=== PATIENT | male | born 1955 | race Two or more races ===

== ENCOUNTER 2019-10-07 12:45 | Inpatient (IN) | payer OTHER, MEDICAID ==
[~2019-10-07] VITALS: Ht 182.9 cm; Wt 80.0 kg
[2019-10-07 13:50] LABS: Basophils # (auto) 0 10 ^3/uL (0-0.2); Basophils % (auto) 0.7 % (0.0-2.0); Eosinophils # (auto) 0.1 10 ^3/uL (0-0.8); Eosinophils % (auto) 4.1 % (0.0-7.0); Hematocrit 35.1 % (41.0-53.0); Hemoglobin 11.7 g/dL (13.5-17.5); Lymphocytes # (auto) 1.1 10 ^3/uL (0.4-5.4); Lymphocytes % (auto) 32.5 % (10.0-50.0); Mean Corpuscular Hemoglobin 33.1 pg (28.0-32.0); Mean Corpuscular Hgb Conc. 33.3 g/dL (32.0-36.0); Mean Corpuscular Volume 99.7 fL (80.0-100.0); Monocytes # (auto) 0.3 10 ^3/uL (0-1.3); Neutrophils # (auto) 1.8 10 ^3/uL (1.6-8.6); Neutrophils % (auto) 54.7 % (37.0-80.0); Nucleated Red Blood Cells % 0.1 %; Platelet Count (auto) 177 10^3/uL (140-450); Red Blood Cells 3.52 10^6/uL (4.5-5.90); Red Cell Distribution Width 15.2 % (11.8-14.3); White Blood Cell 3.3 10^3/uL (4.4-10.8)
[2019-10-07 14:05] LABS: INR 1.11 (0.9-1.15); Partial Thromboplastin Time 27.2 sec (23.64-32.05)
[2019-10-07 14:07] LABS: Chloride 112 mmol/L (98-107); Potassium 3.6 mmol/L (3.5-5.1); Sodium 140 mmol/L (136-145)
[2019-10-07 14:17] LABS: Alanine Aminotransferase 47 U/L (16-61); Albumin 2.3 g/dL (3.4-5.0); Alkaline Phosphatase 70 U/L (45-117); Anion Gap 4 (5-15); Aspartate Aminotransferase 43 U/L (15-37); BUN/Creatinine Ratio 15.2; Bilirubin, Total 0.2 mg/dL (0.2-1.0); Blood Urea Nitrogen 15 mg/dL (7-18); Calcium 8.3 mg/dL (8.5-10.1); Carbon Dioxide 24 mmol/L (21-32); GFR African American 98 mL/min; GFR Non-African American 81 mL/min; Glucose 112 mg/dL (74-106); Magnesium 2.4 mg/dL (1.6-2.6); Total Protein 8.9 g/dL (6.4-8.2)
[2019-10-07] MEDS ORDERED: MORPHINE SULF INJ 2 MG/ML SYRINGE 1ML IV PRN ×2 (18:30→19:15)
[2019-10-07] MEDS ORDERED: NITROGLYCERIN 0.4 MG SL TAB SL PRN (18:30)
[2019-10-07] MEDS: SODIUM CHLORIDE 0.9% 1,000 ML IV SCH (19:08)
[2019-10-07] MEDS ORDERED: LABETALOL HCL 5 MG/ML ML 20ML VIAL IV PRN (19:15)
[2019-10-07] MEDS ORDERED: ONDANSETRON HCL 4 MG/2 ML VIAL IV PRN (19:15)
[2019-10-07] MEDS ORDERED: LORazepam 2MG/ML-1ML VIAL IV PRN ×2 (19:15→20:30)
[2019-10-07] MEDS ORDERED: LORazepam 2MG/ML-1ML VIAL ONE (20:16)
[2019-10-07 21:16] LABS: Cholesterol 69 mg/dL (< 200)
[2019-10-07 21:18] LABS: HDL Cholesterol 38 mg/dL (40-59); LDL Cholesterol 25 mg/dL (< 100); Triglycerides 75 mg/dL (< 150)
[2019-10-07] MEDS ORDERED: PHENYTOIN SODIUM 100 MG CAP PO SCH (22:00)
[2019-10-08 05:00] VITALS: BP 118/72
[2019-10-08 09:00] VITALS: BP 136/76
[2019-10-08] MEDS: traMADol HCL 50 MG TAB PO PRN ×2 (09:19→21:01)
[2019-10-08] MEDS: SODIUM CHLORIDE 0.9% 1,000 ML IV SCH ×2 (09:19→20:08)
[2019-10-08] MEDS: ENOXAPARIN SOD 40 MG/0.4 ML SYRINGE SC SCH (09:19)
[2019-10-08] MEDS: ASPirin 81 mg TAB PO SCH (09:19)
[2019-10-08 13:00] VITALS: BP 127/89
[2019-10-08 16:19] VITALS: BP 138/89
[2019-10-08] MEDS: PHENYTOIN SODIUM 100 MG CAP PO SCH ×2 (19:49→21:01)
[2019-10-08] MEDS: ATORVASTATIN 20 MG TAB PO SCH ×2 (19:49→21:01)
[2019-10-08 21:34] VITALS: BP 154/94
[2019-10-09 02:34] LABS: Alcohol, Urine < 3.0 mg/dL (0-10); Amphetamine Screen, Urine NEGATIVE (NEGATIVE); Barbiturate Scree,Urine NEGATIVE (NEGATIVE); Benzodiazephine Screen, Urine NEGATIVE (NEGATIVE); Cannabinoid Screen, Urine NEGATIVE (NEGATIVE); Cocaine Screen, Urine NEGATIVE (NEGATIVE); Opiate Scree,Urine NEGATIVE (NEGATIVE); Phencyclidine Screen, Urine NEGATIVE (NEGATIVE)
[2019-10-09 02:36] LABS: Urine Bacteria NONE SEEN /hpf (None Seen); Urine Blood Negative /uL (Negative); Urine Mucus FEW (None Seen); Urine Specific Gravity 1.023 (1.001-1.035); Urine WBC <1 /hpf (0 - 3)
[2019-10-09 04:34] VITALS: BP 155/93
[2019-10-09 09:00] VITALS: BP 144/54
[2019-10-09] MEDS: SODIUM CHLORIDE 0.9% 1,000 ML IV SCH ×2 (09:19→21:08)
[2019-10-09] MEDS: ENOXAPARIN SOD 40 MG/0.4 ML SYRINGE SC SCH (09:19)
[2019-10-09] MEDS: ASPirin 81 mg TAB PO SCH (09:19)
[2019-10-09 09:26] LABS: Folate (Folic Acid) 7.83 ng/mL (5.38-24)
[2019-10-09 12:38] VITALS: BP 142/87
[2019-10-09 17:00] VITALS: BP 154/106
[2019-10-09 22:00] VITALS: BP 159/112
[2019-10-09] MEDS: ATORVASTATIN 20 MG TAB PO SCH (22:23)
[2019-10-09] MEDS: QUEtiapine FUMARATE 25 MG TAB PO SCH (22:23)
[2019-10-09] MEDS: PHENYTOIN SODIUM 100 MG CAP PO SCH (22:23)
[2019-10-09] MEDS: traMADol HCL 50 MG TAB PO PRN (22:24)
[2019-10-10 05:03] VITALS: BP 123/78
[2019-10-10] MEDS ORDERED: QUEtiapine FUMARATE 25 MG TAB PO SCH (06:00)
[2019-10-10] MEDS: QUEtiapine FUMARATE 25 MG TAB PO SCH ×3 (06:00→21:54)
[2019-10-10 09:00] VITALS: BP 139/91
[2019-10-10] MEDS: SODIUM CHLORIDE 0.9% 1,000 ML IV SCH ×2 (09:38→22:08)
[2019-10-10] MEDS: ASPirin 81 mg TAB PO SCH (10:36)
[2019-10-10] MEDS: ENOXAPARIN SOD 40 MG/0.4 ML SYRINGE SC SCH (10:36)
[2019-10-10 14:07] VITALS: BP 126/77
[2019-10-10] MEDS: PHENYTOIN SODIUM 100 MG CAP PO SCH (21:54)
[2019-10-10] MEDS: ATORVASTATIN 20 MG TAB PO SCH (21:54)
[2019-10-10 22:00] VITALS: BP 138/72
[2019-10-11 05:00] VITALS: BP 112/80
[2019-10-11] MEDS: QUEtiapine FUMARATE 25 MG TAB PO SCH ×3 (05:39→22:57)
[2019-10-11 09:00] VITALS: BP 127/90
[2019-10-11] MEDS: ENOXAPARIN SOD 40 MG/0.4 ML SYRINGE SC SCH (10:00)
[2019-10-11] MEDS: ASPirin 81 mg TAB PO SCH (10:20)
[2019-10-11] MEDS: SODIUM CHLORIDE 0.9% 1,000 ML IV SCH ×2 (10:54→23:08)
[2019-10-11 13:00] VITALS: BP 141/93
[2019-10-11 17:00] VITALS: BP 153/90
[2019-10-11 22:00] VITALS: BP 125/80
[2019-10-11] MEDS: PHENYTOIN SODIUM 100 MG CAP PO SCH (22:57)
[2019-10-11] MEDS: ATORVASTATIN 20 MG TAB PO SCH (22:57)
[2019-10-12] MEDS: QUEtiapine FUMARATE 25 MG TAB PO SCH ×2 (05:35→14:09)
[2019-10-12 06:00] VITALS: BP 135/89
[2019-10-12 09:00] VITALS: BP 142/89
[2019-10-12] MEDS: ASPirin 81 mg TAB PO SCH (09:41)
[2019-10-12] MEDS: ENOXAPARIN SOD 40 MG/0.4 ML SYRINGE SC SCH ×2 (09:41→10:00)
[2019-10-12] MEDS: SODIUM CHLORIDE 0.9% 1,000 ML IV SCH (11:59)
[2019-10-12 13:00] VITALS: BP 142/96
[2019-10-12] MEDS: traMADol HCL 50 MG TAB PO PRN (16:42)
[2019-10-12 17:00] VITALS: BP 134/79
[2019-10-12 22:00] VITALS: BP 129/82
[2019-10-13] MEDS: SODIUM CHLORIDE 0.9% 1,000 ML IV SCH ×2 (00:08→12:38)
[2019-10-13] MEDS: PHENYTOIN SODIUM 100 MG CAP PO SCH ×2 (00:12→21:13)
[2019-10-13] MEDS: ATORVASTATIN 20 MG TAB PO SCH ×2 (00:12→21:13)
[2019-10-13] MEDS: QUEtiapine FUMARATE 25 MG TAB PO SCH ×4 (00:12→21:13)
[2019-10-13 05:00] VITALS: BP 149/79
[2019-10-13] MEDS: traMADol HCL 50 MG TAB PO PRN (06:11)
[2019-10-13 09:00] VITALS: BP 129/81
[2019-10-13] MEDS: ASPirin 81 mg TAB PO SCH (09:46)
[2019-10-13] MEDS: ENOXAPARIN SOD 40 MG/0.4 ML SYRINGE SC SCH (09:47)
[2019-10-13] MEDS: LACTULOSE 20Gm/30ML SOLN PO PRN (15:31)
[2019-10-13 17:00] VITALS: BP 136/91
[2019-10-13 22:00] VITALS: BP 165/92
[2019-10-14] MEDS: SODIUM CHLORIDE 0.9% 1,000 ML IV SCH ×2 (02:08→14:11)
[2019-10-14 05:00] VITALS: BP 126/73
[2019-10-14] MEDS: QUEtiapine FUMARATE 25 MG TAB PO SCH ×3 (05:08→21:53)
[2019-10-14 09:00] VITALS: BP 144/83
[2019-10-14] MEDS: ENOXAPARIN SOD 40 MG/0.4 ML SYRINGE SC SCH (09:53)
[2019-10-14] MEDS: ASPirin 81 mg TAB PO SCH (09:53)
[2019-10-14 13:00] VITALS: BP 134/85
[2019-10-14 16:58] VITALS: BP 146/80
[2019-10-14] MEDS: PHENYTOIN SODIUM 100 MG CAP PO SCH (21:53)
[2019-10-14] MEDS: ATORVASTATIN 20 MG TAB PO SCH (21:53)
[2019-10-14 21:58] VITALS: BP 144/83
[2019-10-15] MEDS: SODIUM CHLORIDE 0.9% 1,000 ML IV SCH ×2 (02:30→18:07)
[2019-10-15 05:00] VITALS: BP 146/90
[2019-10-15] MEDS: QUEtiapine FUMARATE 25 MG TAB PO SCH ×3 (06:04→23:25)
[2019-10-15 09:00] VITALS: BP 130/78
[2019-10-15] MEDS: ASPirin 81 mg TAB PO SCH (09:48)
[2019-10-15] MEDS: ENOXAPARIN SOD 40 MG/0.4 ML SYRINGE SC SCH (09:48)
[2019-10-15] MEDS: LACTULOSE 20Gm/30ML SOLN PO PRN (09:52)
[2019-10-15] MEDS: PANTOPRAZOLE 40 MG TAB PO SCH (09:59)
[2019-10-15 13:00] VITALS: BP 142/86
[2019-10-15 17:00] VITALS: BP 131/88
[2019-10-15] MEDS: traMADol HCL 50 MG TAB PO PRN (20:52)
[2019-10-15] MEDS: PHENYTOIN SODIUM 100 MG CAP PO SCH (23:23)
[2019-10-15] MEDS: ATORVASTATIN 20 MG TAB PO SCH (23:23)
[2019-10-16] MEDS ORDERED: TEMAZEPAM 15 MG CAP PO PRN (00:15)
[2019-10-16 05:00] VITALS: BP 132/80
[2019-10-16] MEDS: SODIUM CHLORIDE 0.9% 1,000 ML IV SCH ×2 (06:09→15:38)
[2019-10-16] MEDS: QUEtiapine FUMARATE 25 MG TAB PO SCH ×3 (06:10→21:49)
[2019-10-16] MEDS: PANTOPRAZOLE 40 MG TAB PO SCH (09:22)
[2019-10-16] MEDS: ASPirin 81 mg TAB PO SCH (09:22)
[2019-10-16] MEDS: ENOXAPARIN SOD 40 MG/0.4 ML SYRINGE SC SCH (09:23)
[2019-10-16 13:00] VITALS: BP 119/79
[2019-10-16 16:45] VITALS: BP 124/78
[2019-10-16] MEDS: PHENYTOIN SODIUM 100 MG CAP PO SCH (21:49)
[2019-10-16] MEDS: ATORVASTATIN 20 MG TAB PO SCH (21:49)
[2019-10-16 22:00] VITALS: BP 136/84
[2019-10-17 06:00] VITALS: BP 126/86
[2019-10-17] MEDS: QUEtiapine FUMARATE 25 MG TAB PO SCH ×3 (06:35→22:25)
[2019-10-17] MEDS: SODIUM CHLORIDE 0.9% 1,000 ML IV SCH (06:36)
[2019-10-17 09:00] VITALS: BP 119/81
[2019-10-17] MEDS: ASPirin 81 mg TAB PO SCH (10:06)
[2019-10-17] MEDS: PANTOPRAZOLE 40 MG TAB PO SCH (10:07)
[2019-10-17] MEDS: ENOXAPARIN SOD 40 MG/0.4 ML SYRINGE SC SCH (10:07)
[2019-10-17 13:00] VITALS: BP 132/89
[2019-10-17 17:00] VITALS: BP 127/83
[2019-10-17 21:58] VITALS: BP_SYST 108; BP_SYST 136; BP_DIAS 68; BP_DIAS 85
[2019-10-17] MEDS: PHENYTOIN SODIUM 100 MG CAP PO SCH (22:16)
[2019-10-17] MEDS: ATORVASTATIN 20 MG TAB PO SCH (22:25)
[2019-10-18 05:05] VITALS: BP 119/71
[2019-10-18] MEDS: QUEtiapine FUMARATE 25 MG TAB PO SCH ×3 (05:33→22:12)
[2019-10-18 09:00] VITALS: BP 142/91
[2019-10-18] MEDS: PANTOPRAZOLE 40 MG TAB PO SCH (11:30)
[2019-10-18] MEDS: ASPirin 81 mg TAB PO SCH (11:30)
[2019-10-18] MEDS: ENOXAPARIN SOD 40 MG/0.4 ML SYRINGE SC SCH (11:30)
[2019-10-18 13:00] VITALS: BP 129/86
[2019-10-18] MEDS: ACETAMINOPHEN 500 MG TAB PO PRN (14:44)
[2019-10-18 17:00] VITALS: BP 136/85
[2019-10-18 21:57] VITALS: BP 133/93
[2019-10-18] MEDS: ATORVASTATIN 20 MG TAB PO SCH (22:12)
[2019-10-18] MEDS: PHENYTOIN SODIUM 100 MG CAP PO SCH (22:12)
[2019-10-19 05:00] VITALS: BP 142/93
[2019-10-19] MEDS: QUEtiapine FUMARATE 25 MG TAB PO SCH ×3 (06:28→22:50)
[2019-10-19 08:00] VITALS: BP 115/74
[2019-10-19] MEDS: ENOXAPARIN SOD 40 MG/0.4 ML SYRINGE SC SCH ×2 (09:54→10:00)
[2019-10-19] MEDS: PANTOPRAZOLE 40 MG TAB PO SCH (09:54)
[2019-10-19] MEDS: ASPirin 81 mg TAB PO SCH (09:54)
[2019-10-19 13:00] VITALS: BP 132/75
[2019-10-19 17:00] VITALS: BP 150/93
[2019-10-19] MEDS: ACETAMINOPHEN 500 MG TAB PO PRN (17:04)
[2019-10-19 22:00] VITALS: BP 133/84
[2019-10-19] MEDS: PHENYTOIN SODIUM 100 MG CAP PO SCH (22:50)
[2019-10-19] MEDS: ATORVASTATIN 20 MG TAB PO SCH (22:50)
[2019-10-20] MEDS: ACETAMINOPHEN 500 MG TAB PO PRN (01:12)
[2019-10-20 05:00] VITALS: BP 122/73
[2019-10-20] MEDS: QUEtiapine FUMARATE 25 MG TAB PO SCH (05:55)
[2019-10-20 08:47] VITALS: BP 132/81
[2019-10-20] MEDS: ASPirin 81 mg TAB PO SCH (10:40)
[2019-10-20] MEDS: PANTOPRAZOLE 40 MG TAB PO SCH (10:40)
[2019-10-20 11:46] VITALS: BP 132/81
== END 2019-10-20 14:06 | disposition home or self-care (01) | DRG 64 ==
LOC: ER 12:45 → EDBD 12:45 → TELE 12:46 → TELE-CENTR 10-08 02:02 → CENTRAL 10-11 07:02 → WEST WING 10-13 17:40
PROVIDERS: ADMIT Internal Medicine; ATTEND Family Medicine
DX: I63.9 Cerebral infarction, unspecified (principal); G93.41 Metabolic encephalopathy; E43 Unspecified severe protein-calorie malnutrition; F03.91 Unspecified dementia, unspecified severity, with behavioral disturbance; F17.200 Nicotine dependence, unspecified, uncomplicated; G93.89 Other specified disorders of brain; Z86.73 Personal history of transient ischemic attack (TIA), and cerebral infarction without residual deficits; Z79.82 Long term (current) use of aspirin; D64.9 Anemia, unspecified; Z20.828 Contact with and (suspected) exposure to other viral communicable diseases; F09 Unspecified mental disorder due to known physiological condition; R56.9 Unspecified convulsions
CPT/HCPCS: 36415; 70450; 70551; 71045; 80053; 80061; 80185; 80307; 81001; 82550; 82607; 82746; 83735; 84443; 84484; 85025; 85610; 85730; 93005; 95819; 97116; 97163; G0378